=== PATIENT | male | born 1980 | race Hispanic/Latino ===

== ENCOUNTER 2017-10-26 20:18 | Emergency (ER) | payer MEDICARE, OTHER ==
[2017-10-26 20:27] VITALS: BMI 29.7
[2017-10-26 21:08] LABS: ALB/GLOB RATIO 1.3 (1.1-1.8); ALBUMIN 4.5 g/dL (3.0-4.8); ALT/SGPT 54 U/L (7-56); AST/SGOT 27 U/L (17-59); BLOOD UREA NITROGEN 13 mg/dL (7-21); CALCIUM 9.6 mg/dL (8.4-10.5); GFR AFRICAN-AMERICAN > 60; GFR NON-AFRICAN AMERICAN > 60
--- NOTE | 2017-10-26 21:09 | ED PDOC ---
Arrival/HPI - General Historian: Patient <Susanne Barnett A - Last Filed: 10/27/17 01:03> <Onofre Augustin - Last Filed: 10/28/17 15:30> - General Chief Complaint: Chest Pain Time Seen by Provider: 10/26/17 20:36 - History of Present Illness Narrative History of Present Illness (Text): 10/26/17 20:56 37yo morbidly obese male with pmhx of hypertension present with complaint of elevated BP and chest tightness. States he stopped taking his antihypertensive years ago, after losing weight. States he wasn't feeling well 4months ago and checked his BP and it was elevated. He states that he started taking old Norvasc he found in his house. States he took it for 4weeks and feel that it didn't help his BP. States he took the last tab few days ago. States he started having chest tightness this evening. He denies headache, nausea, vomiting, slurred speech, focal weakness, visual changes, fever, chills, neck pain, abdominal pain, any other complaint. (Susanne Barnett A) Past Medical History - Provider Review Nursing Documentation Reviewed: Yes - Infectious Disease Hx of Infectious Diseases: None - Tetanus Immunization Tetanus Immunization: Unknown - Past Medical History Past Medical History: No Previous - Cardiac Hx Hypertension: Yes - Pulmonary Hx Pneumonia: Yes - Neurological Hx Neurological Disorder: No - HEENT Hx HEENT Disorder: No - Renal Hx Renal Disorder: No Hx Kidney Stones: Yes - Endocrine/Metabolic Hx Endocrine Disorders: No - Hematological/Oncological Hx Blood Disorders: No - Integumentary Hx Dermatological Disorder: No (MULTIPLE SCARRING FROM SURGERY -BACK OF HEAD BILATERAL LEGS) - Musculoskeletal/Rheumatological Hx Falls: No Hx Fractures: Yes Other/Comment: multiple ortho sx - Gastrointestinal Hx Gastrointestinal Disorders: No - Genitourinary/Gynecological Hx Genitourinary Disorders: Yes Hx Hematuria: Yes Hx Urinary Tract Infection: Yes (10-31-13) - Psychiatric Hx Psychophysiologic Disorder: No Hx Substance Use: No - Surgical History Hx Joint Replacement: Yes Hx Musculoskeletal Surgery: Yes Hx Orthopedic Surgery: Yes Other/Comment: L femur sx. Compressed spine. H/O paralysis - Anesthesia Hx Anesthesia: Yes Hx Anesthesia Reactions: No Hx Malignant Hyperthermia: No - Suicidal Assessment Feels Threatened In Home Enviroment: No <Susanne Barnett A - Last Filed: 10/27/17 01:03> Family/Social History - Physician Review Nursing Documentation Reviewed: Yes Family/Social History: Unknown Family HX Smoking Status: Heavy Smoker > 10 Cigarettes Daily Hx Alcohol Use: No Hx Substance Use: No Hx Substance Use Treatment: No <Susanne Barnett A - Last Filed: 10/27/17 01:03> Allergies/Home Meds <Susanne Barnett A - Last Filed: 10/27/17 01:03> <CharliOnofre - Last Filed: 10/28/17 15:30> Allergies/Adverse Reactions: Allergies cat Allergy (Uncoded 12/19/14 16:56) SHORTNESS OF BREATH Home Medications: Home Meds Medication Instructions Recorded Confirmed Aspirin [Adult Low Dose Aspirin EC] 1 tab PO DAILY 10/26/17 10/26/17 Review of Systems - Physician Review All systems were reviewed & negative as marked: Yes - Review of Systems Constitutional: Normal Eyes: Normal ENT: Normal Respiratory: Normal Cardiovascular: Chest Pain. absent: Palpitations, Edema, Calf Pain, SOUZA, Orthopnea, Syncope Gastrointestinal: Normal Genitourinary Male: Normal Musculoskeletal: Normal Skin: Normal Neurological: Normal Endocrine: Normal Hemo/Lymphatic: Normal Psychiatric: Normal <Susanne Barnett A - Last Filed: 10/27/17 01:03> Physical Exam Vital Signs Reviewed: Yes Temperature: Afebrile Blood Pressure: Hypertensive Pulse: Regular Respiratory Rate: Normal Appearance: Positive for: Well-Appearing, Non-Toxic, Comfortable Pain Distress: None Mental Status: Positive for: Alert and Oriented X 3 - Systems Exam Head: Present: Atraumatic, Normocephalic Pupils: Present: PERRL Extroacular Muscles: Present: EOMI Conjunctiva: Present: Normal Mouth: Present: Moist Mucous Membranes Neck: Present: Normal Range of Motion Respiratory/Chest: Present: Clear to Auscultation, Good Air Exchange. No: Respiratory Distress, Accessory Muscle Use Cardiovascular: Present: Regular Rate and Rhythm, Normal S1, S2. No: Murmurs Abdomen: No: Tenderness, Distention, Peritoneal Signs Back: Present: Normal Inspection Upper Extremity: Present: Normal Inspection. No: Cyanosis, Edema Lower Extremity: Present: Normal Inspection. No: Edema Neurological: Present: GCS=15, CN II-XII Intact, Speech Normal, Motor Func Grossly Intact, Normal Sensory Function, Normal Cerebellar Funct, Norm Deep Tendon Reflexes, Gait Normal, Memory Normal, Normal 2Pt Descrimination, Other ( No focal neurological deficit) Skin: Present: Warm, Dry, Normal Color. No: Rashes Psychiatric: Present: Alert, Oriented x 3, Normal Insight, Normal Concentration <Susanne Barnett A - Last Filed: 10/27/17 01:03> Vital Signs Temp Pulse Pulse Resp BP Pulse Ox 10/27/17 00:57 98.2 F 85 17 167/83 H 99 10/27/17 00:13 85 16 153/85 H 99 10/26/17 22:41 84 164/84 H 10/26/17 22:22 84 187/110 H 10/26/17 21:44 90 16 185/99 H 99 10/26/17 21:05 95 H 168/110 H 10/26/17 20:40 92 H 10/26/17 20:37 98.8 F 90 18 162/119 H 97 Medical Decision Making <Susanne Barnett A - Last Filed: 10/27/17 01:03> <Onofre Augustin - Last Filed: 10/28/17 15:30> ED Course and Treatment: 10/27/17 00:58 PT presented for stated history. He was hypertensive on presentation but not in any distress. He remained Neurologically intact in Emergency department. Lab was ordered and reviewed. EKG NSR @92bpm Pt's BP was controlled in Emergency department with medication. ASA was given for chest pain Ist and 2nd CE was negative. PT was given a rx of Lisnopril/HCTZ 20/12.5mg. He was strongly advised to f/u with the clinic. Educated on the importance of been complaint with his antihtn. (Susanne Barnett A) - Lab Interpretations Lab Results: 10/26/17 20:31 10/26/17 20:31 Lab Results 10/27/17 00:01: Lactate Dehydrogenase 359, Total Creatine Kinase 82, Troponin I < 0.01 10/26/17 20:31: Sodium 145, Potassium 4.3, Chloride 104, Carbon Dioxide 29, Anion Gap 17, BUN 13, Creatinine 0.8, Est GFR ( Amer) > 60, Est GFR (Non- Af Amer) > 60, Random Glucose 128 H, Calcium 9.6, Magnesium 1.9, Total Bilirubin 0.4, AST 27, ALT 54, Alkaline Phosphatase 59, Lactate Dehydrogenase 432, Total Creatine Kinase 87, Troponin I < 0.01, Total Protein 7.9, Albumin 4.5 , Globulin 3.5, Albumin/Globulin Ratio 1.3 10/26/17 20:31: PT 11.0, INR 0.97, APTT 30.6 10/26/17 20:31: WBC 11.8 H D, RBC 5.35, Hgb 16.0, Hct 46.2, MCV 86.4, MCH 29.9, MCHC 34.6, RDW 12.7, Plt Count 270, MPV 10.7, Gran % 59.3, Lymph % (Auto) 30.8, [place] % (Auto) 6.5 H, Eos % (Auto) 3.1, Baso % (Auto) 0.3, Gran # 6.97 H, Lymph # (Auto) 6.6 H, [place] # (Auto) 0.8 H, Eos # (Auto) 0.3, Baso # (Auto) 0.03 - RAD Interpretation Radiology Orders: 10/26/17 20:39 CHEST PORTABLE [RAD] Stat - Medication Orders Current Medication Orders: Discontinued Medications Aspirin (Aspirin) 325 mg PO STAT STA Stop: 10/26/17 20:39 Last Admin: 10/26/17 21:05 Dose: 325 mg Hydralazine HCl (Apresoline) 10 mg IVP STAT DEDE Last Admin: 10/26/17 21:05 Dose: 10 mg IVP Administration Document 10/26/17 21:05 IT (Rec: 10/26/17 21:06 CHIDI [id number]) Charges for Administration # of IVP Administrations 1 MAR Pulse and Blood Pressure Document 10/26/17 21:05 IT (Rec: 10/26/17 21:06 CHIDI [id number]) Pulse Pulse Rate (60-90) 95 Blood Pressure Blood Pressure (100/60-150/90) 168/110 Hydralazine HCl (Apresoline) 10 mg IVP STAT STA Stop: 10/26/17 22:04 Last Admin: 10/26/17 22:22 Dose: 10 mg IVP Administration Document 10/26/17 22:22 GMD (Rec: 10/26/17 22:23 [facility] [id number]) Charges for Administration # of IVP Administrations 1 MAR Pulse and Blood Pressure Document 10/26/17 22:22 [facility] (Rec: 10/26/17 22:23 [facility] [id number]) Pulse Pulse Rate (60-90) 84 Blood Pressure Blood Pressure (100/60-150/90) 187/110 - PA / FITNESS SALES CONSULTANT / Resident Statement MD/DO has reviewed & agrees with the documentation as recorded. <Onofre Augustin - Last Filed: 10/28/17 15:30> Disposition/Present on Arrival - Present on Arrival Any Indicators Present on Arrival: No History of DVT/PE: No History of Uncontrolled Diabetes: No Urinary Catheter: No History of Decub. Ulcer: No History Surgical Site Infection Following: None - Disposition Have Diagnosis and Disposition been Completed?: Yes Disposition Time: 00:50 Patient Plan: Discharge <Susanne Barnett - Last Filed: 10/27/17 01:03> <Onofre Augustin - Last Filed: 10/28/17 15:30> - Disposition Diagnosis: Hypertension, Chest pain Disposition: HOME/ ROUTINE Condition: IMPROVED Discharge Instructions (ExitCare): High Blood Pressure in Adults, Chest Pain, Chest Pain (ED) Additional Instructions: Follow up with the clinic Return to Emergency department for any new or worsening symptoms Prescriptions: Lisinopril/Hydrochlorothiazide [Lisinopril-Hctz 20-12.5 mg Tab] 1 each PO DAILY #15 tablet Referrals: PCP,NO [Primary Care Provider] - Follow up with primary Amy Freedman MD [Medical Doctor] - Follow up with primary Forms: [employer] ([place])
[2017-10-26 21:16] LABS: MEAN CELL VOLUME 86.4 fl (80.0-105.0); MEAN CORPUSCULAR HEMOGLOBIN 29.9 pg (25.0-35.0); RBC 5.35 10^6/uL (3.5-6.1); WHITE BLOOD COUNT 11.8 10^3/ul (4.5-11.0)
[2017-10-26 21:18] LABS: TROPONIN I < 0.01 ng/mL
[2017-10-26 21:20] LABS: INR 0.97; PARTIAL THROMBOPLASTIN TIME 30.6 Seconds (25.1-36.5)
[2017-10-26 21:23] LABS: MEAN CORPUSCULAR HGB CONC 34.6 g/dl (31.0-37.0); RED CELL DISTRIBUTION WIDTH 12.7 % (11.5-14.5)
[2017-10-26 21:24] LABS: BASO # 0.03 K/mm3 (0.0-2.0); BASO % 0.3 % (0.0-3.0); EOS # 0.3 (0.0-0.7); EOS % 3.1 % (1.5-5.0); GRAN # 6.97 (1.4-6.5); GRAN % 59.3 % (50.0-68.0); LYMPH # 6.6 (1.2-3.4); LYMPH % 30.8 % (22.0-35.0); MEAN PLATELET VOLUME 10.7 fl (7.0-11.0); MONO # 0.8 (0.1-0.6); MONO % 6.5 % (1.0-6.0)
[2017-10-26 21:45] VITALS: O2SAT 99
[2017-10-27 00:14] VITALS: PULSE 85
[2017-10-27 00:38] LABS: TROPONIN I < 0.01 ng/mL
[2017-10-27 00:57] VITALS: BP 167/83; RESP 17; TEMP 98.2
--- NOTE | 2017-10-27 08:40 | RAD ---
Date of service: 10/26/2017 HISTORY: chest pain COMPARISON: Comparison chest 01/11/2015 FINDINGS: LUNGS: No active pulmonary disease. PLEURA: No significant pleural effusion identified, no pneumothorax apparent. CARDIOVASCULAR: Normal. OSSEOUS STRUCTURES: No significant abnormalities. VISUALIZED UPPER ABDOMEN: Normal. OTHER FINDINGS: None. IMPRESSION: No active disease.
--- NOTE | 2017-10-27 10:31 | CARD ---
APPROVED REPORT Date of service: 10/26/2017 EKG Measurement Heart [id number] <Conclusion> Normal sinus rhythm Normal ECG
== END 2017-10-27 00:57 | disposition home or self-care (01) ==
LOC: ED 20:18
DX: R07.89 Other chest pain (principal); I10 Essential (primary) hypertension; F17.210 Nicotine dependence, cigarettes, uncomplicated; E66.01 Morbid (severe) obesity due to excess calories
CPT/HCPCS: 71045; 80053; 82550; 83615; 83735; 84484; 85025; 85610; 85730; 93005; 96374; 96376; 99284; J0360

== ENCOUNTER 2017-10-28 17:36 | Observation (INO) | payer MEDICARE, OTHER ==
[2017-10-28 17:36] VITALS: BMI 29.7
--- NOTE | 2017-10-28 17:59 | ED PDOC ---
"Arrival/HPI - General Chief Complaint: High Blood Pressure Time Seen by Provider: 10/28/17 17:40 Historian: Patient - History of Present Illness Narrative History of Present Illness (Text): 10/28/17 17:52 37 y/o male, pmh including chronic htn, chronic smoker, family history of [place] at early 30s, nkda, c/o chest pain on and off for the past few days. Pt. stated that his chest feels tight with squeezing sensation, associated with chest pain , non-radiating, no palpitation or night sweat, no history of leg swelling, no numbness or tingling, no change in vision, no headache, no other medical or psychological complaints. Past Medical History - Provider Review Nursing Documentation Reviewed: Yes - Infectious Disease Hx of Infectious Diseases: None - Tetanus Immunization Tetanus Immunization: Unknown - Past Medical History Past Medical History: No Previous - Cardiac Hx Hypertension: Yes - Pulmonary Hx Pneumonia: Yes - Neurological Hx Neurological Disorder: No - HEENT Hx HEENT Disorder: No - Renal Hx Renal Disorder: No Hx Kidney Stones: Yes - Endocrine/Metabolic Hx Endocrine Disorders: No - Hematological/Oncological Hx Blood Disorders: No - Integumentary Hx Dermatological Disorder: No (MULTIPLE SCARRING FROM SURGERY -BACK OF HEAD BILATERAL LEGS) - Musculoskeletal/Rheumatological Hx Falls: No Hx Fractures: Yes Other/Comment: multiple ortho sx - Gastrointestinal Hx Gastrointestinal Disorders: No - Genitourinary/Gynecological Hx Genitourinary Disorders: Yes Hx Hematuria: Yes Hx Urinary Tract Infection: Yes (10-31-13) - Psychiatric Hx Psychophysiologic Disorder: No Hx Substance Use: No - Surgical History Hx Joint Replacement: Yes Hx Musculoskeletal Surgery: Yes Hx Orthopedic Surgery: Yes Other/Comment: L femur sx. Compressed spine. H/O paralysis - Anesthesia Hx Anesthesia: Yes Hx Anesthesia Reactions: No Hx Malignant Hyperthermia: No - Suicidal Assessment Feels Threatened In Home Enviroment: No Family/Social History - Physician Review Nursing Documentation Reviewed: Yes Family/Social History: Unknown Family HX Smoking Status: Heavy Smoker > 10 Cigarettes Daily Hx Alcohol Use: No Hx Substance Use: No Hx Substance Use Treatment: No Allergies/Home Meds Allergies/Adverse Reactions: Allergies cat Allergy (Uncoded 12/19/14 16:56) SHORTNESS OF BREATH Home Medications: Home Meds Medication Instructions Recorded Confirmed Aspirin [Adult Low Dose Aspirin EC] 1 tab PO DAILY 10/26/17 10/28/17 Review of Systems - Review of Systems Constitutional: absent: Fatigue, Fevers Eyes: absent: Vision Changes ENT: absent: Hearing Changes Respiratory: absent: SOB, Cough Cardiovascular: Chest Pain Gastrointestinal: absent: Abdominal Pain, Nausea, Vomiting Skin: absent: Rash, Pruritis Neurological: absent: Headache, Dizziness Psychiatric: absent: Anxiety, Depression, Suicidal Ideation Physical Exam Vital Signs Reviewed: Yes Vital Signs Temp Pulse Resp BP Pulse Ox 10/28/17 23:18 71 22 137/80 97 10/28/17 22:59 75 16 149/98 H 95 10/28/17 21:58 85 21 161/98 H 97 10/28/17 21:22 205/127 H 10/28/17 19:54 88 13 152/121 H 98 10/28/17 18:41 94 H 19 148/119 H 99 10/28/17 18:30 148/119 H 10/28/17 17:45 98 F 96 H 18 180/112 H 99 Temperature: Afebrile Blood Pressure: Hypertensive Pulse: Regular Respiratory Rate: Normal Appearance: Positive for: Well-Appearing, Non-Toxic, Comfortable Pain Distress: Moderate Mental Status: Positive for: Alert and Oriented X 3 - Systems Exam Head: Present: Atraumatic, Normocephalic Pupils: Present: PERRL Extroacular Muscles: Present: EOMI Conjunctiva: Present: Normal Mouth: Present: Moist Mucous Membranes Neck: Present: Normal Range of Motion Respiratory/Chest: Present: Clear to Auscultation, Good Air Exchange. No: Respiratory Distress, Accessory Muscle Use Cardiovascular: Present: Regular Rate and Rhythm, Normal S1, S2, Other (no pedal edema). No: Murmurs Abdomen: No: Tenderness, Distention, Peritoneal Signs, Rebound, Guarding Back: Present: Normal Inspection Upper Extremity: Present: Normal Inspection. No: Cyanosis, Edema Lower Extremity: Present: Normal Inspection. No: Edema Neurological: Present: GCS=15, CN II-XII Intact, Speech Normal, Motor Func Grossly Intact, Gait Normal, Memory Normal Skin: Present: Warm, Dry, Normal Color. No: Rashes Psychiatric: Present: Alert, Oriented x 3, Normal Insight, Normal Concentration Medical Decision Making ED Course and Treatment: 10/28/17 18:09 Differential: Dissection vs. ACS vs. Hypertensive emergency/urgency vs. CHF vs. drug abuse -Labs/cardiac enzyme/bnp/drug screen -ekg -cxr/CT dissection study -IVF/morphine/nitro SL/Asprin 325mg po/Oxygen 2L -Observe and reassess 10/28/17 21:15 -Pt. has elevated BP again, not control, labetolol 20mg IV ordered, will admit for uncontrollable htn 10/28/17 21:56 -EKG: NSR @ 85 BPM, RBBB, no ST elevation or depression, no T wave inversion, compared with previous ekg. -Chest X-Ray show no active disease -CT dissection show No dissection -Labs show no acute findings except wbc 11.5 (afebrile, likely stress induced) -BNP within normal limit -Cardiac enzyme within normal limit -UA show no UTI -UDS show -All labs/radiology result discussed with the patient and the family, agreed to admit for observation. -Pt. has chest pain relief with the medication in the ER, will admit for uncontrollable BP and Chest pain r/o acs. -Paging Dr. Franklin for admission. 10/28/17 22:41 -I spoke to Dr. Franklin about this case, discussed about the labs/radiology result, agreed to admit to her service to telemetry, request Dr. Noland and Dr. Lewis on routine consult. 10/28/17 23:20 -Drug screen show +methadone and +opiate - Lab Interpretations Lab Results: 10/28/17 18:15 10/28/17 18:15 Lab Results 10/28/17 20:40: Urine Opiates Screen Positive H, Urine Methadone Screen Positive H, Ur Barbiturates Screen Negative, Ur Phencyclidine Scrn Negative, Ur Amphetamines Screen Negative, U Benzodiazepines Scrn Negative, U Oth Cocaine Metabols Negative, U Cannabinoids Screen Negative 10/28/17 19:58: Urine Color Light yellow, Urine Appearance Clear, Urine pH 6.0, Ur Specific Sheldon >= 1.030, Urine Protein 30 H, Urine Glucose (UA) Negative, Urine Ketones Negative, Urine Blood Negative, Urine Nitrate Negative, Urine Bilirubin Negative, Urine Urobilinogen 0.2, Ur Leukocyte Esterase Negative, Urine RBC Negative, Urine WBC Negative, Ur Epithelial Cells None, Urine Bacteria None 10/28/17 18:15: WBC 11.5 H, RBC 5.39, Hgb 16.5, Hct 45.9, MCV 85.2, MCH 30.6, MCHC 35.9, RDW 12.7, Plt Count 279, MPV 10.5, Gran % 60.6, Lymph % (Auto) 30.1, Nash % (Auto) 6.5 H, Eos % (Auto) 2.5, Baso % (Auto) 0.3, Gran # 6.99 H, Lymph # (Auto) 3.5 H, Nash # (Auto) 0.8 H, Eos # (Auto) 0.3, Baso # (Auto) 0.03 10/28/17 18:15: Sodium 141, Potassium 4.0, Chloride 101, Carbon Dioxide 28, Anion Gap 16, BUN 16, Creatinine 0.9, Est GFR ( Amer) > 60, Est GFR (Non- Af Amer) > 60, Random Glucose 98, Calcium 9.7, Magnesium 2.0, Total Bilirubin 0.5, AST 29, ALT 53, Alkaline Phosphatase 57, Lactate Dehydrogenase 436, Total Creatine Kinase 82, Troponin I < 0.01, NT-Pro-B Natriuret Pep 25.0, Total Protein 8.2, Albumin 4.7, Globulin 3.5, Albumin/Globulin Ratio 1.4 I have reviewed the lab results: Yes - RAD Interpretation Radiology Orders: 10/28/17 18:00 ANGIOGRAPHY DISECTION PROTOCOL [CT] Stat CHEST PORTABLE [RAD] Stat Chest xray: --- CT Dissection study: FINDINGS: Limitations: No java software engineer view. Motion artifact - mild. Pulmonary arteries: No definite pulmonary embolism. Aorta: No dissection. No aneurysm. Lungs: No consolidation. Pleural space: No significant effusion. No pneumothorax. Heart: No cardiomegaly. No significant pericardial effusion. Mediastinum: Probable residual thymus. Bones/joints: Schmorl's nodes at few levels. Mild wedging of lower thoracic vertebral bodies, chronic. No acute fracture. Soft tissues: Unremarkable. Lymph nodes: No pathologically enlarged lymph nodes. IMPRESSION: 1. No aortic dissection. GISELA HANNON | Preliminary Radiology Report Page 2 of 3 2. Incidental/non-acute findings are described above. EXAM: CT Angiography Abdomen and Pelvis Without And With Intravenous Contrast CLINICAL HISTORY: 37 years old, male; Pain; Abdominal pain; Chest pain; Prior surgery; Surgery date: 6+ months; Patient HX: Chest pain/htn TECHNIQUE: Axial computed tomographic angiography images of the abdomen and pelvis without and with intravenous contrast. All CT scans at this facility use at least one of these dose optimization techniques: automated exposure control; mA and/or kV adjustment per patient size (includes targeted exams where dose is matched to clinical indication); or iterative reconstruction. Coronal and sagittal reformatted images were created and reviewed. COMPARISON: No relevant prior studies available. FINDINGS: VASCULATURE: Aorta: No dissection. No aneurysm. Minimal atherosclerotic disease. Celiac trunk and mesenteric arteries: No occlusion or significant stenosis. Renal arteries: No occlusion or significant stenosis. Iliac arteries: Minimal atherosclerotic disease. No occlusion or significant stenosis. ABDOMEN: Liver: Fatty infiltration. Gallbladder and bile ducts: No calcified stones. No ductal dilation. Pancreas: No ductal dilation. No mass. Spleen: Mildly enlarged. Adrenals: No mass. Kidneys and ureters: No obstructing stones. No hydronephrosis. No solid mass. Stomach and bowel: No obstruction. No mucosal thickening. PELVIS: Appendix: Normal caliber. No inflammation. Bladder: No stones. No mass. Reproductive: Unremarkable as visualized. ABDOMEN and PELVIS: Intraperitoneal space: No significant fluid collection. No free air. GISELA HANNON | Preliminary Radiology Report PICKERS MATERIAL HANDLERS (QA) DISCREPANCY? If there is a discrepancy between the preliminary and final interpretation, please notify [facility] via [email or web address]. If you do not have access to our QA portal, call our QA team at [phone] CONFIDENTIALITY STATEMENT This report is intended only for the use of the referring physician, and only in accordance with law, If you received this in error, call [phone] Page 3 of 3 Bones/joints: Schmorl's nodes at few levels. Developmental dysplasia of right hip. No acute fracture. Soft tissues: Tiny umbilical hernia containing fat. Lymph nodes: No pathologically enlarged lymph nodes. IMPRESSION: 1. No aortic dissection. 2. Incidental/non-acute findings are described above. Thank you for allowing us to participate in the care of your patient. Dictated and Authenticated by: Bo Guerra MD - EKG Interpretation EKG Interpretation (Text): 10/28/17 18:11 -EKG: NSR @ 85 BPM, RBBB, no ST elevation or depression, no T wave inversion, compared with previous ekg. Interpreted by ED Physician: Yes Type: 12 lead EKG Comparison: Com.w/previous EKG - Medication Orders Current Medication Orders: Sodium Chloride (Sodium Chloride 0.9%) 1,000 mls @ 100 mls/hr IV .Q10H DEDE Last Admin: 10/28/17 18:32 Dose: 100 mls/hr eMAR Start Stop Document 10/28/17 18:32 GMI (Rec: 10/28/17 18:32 GMI [id number]) Intravenous Solution Start Date 10/28/17 Start Time 18:32 Discontinued Medications Aspirin (Aspirin) 325 mg PO STAT STA Stop: 10/28/17 18:05 Last Admin: 10/28/17 18:13 Dose: 325 mg Enalaprilat (Vasotec Iv) 1.25 mg IVP STAT STA Stop: 10/28/17 18:02 Last Admin: 10/28/17 18:30 Dose: 1.25 mg MAR Blood Pressure Document 10/28/17 18:30 GMI (Rec: 10/28/17 18:30 GMI [id number]) Blood Pressure Blood Pressure (100/60-150/90) 148/119 IVP Administration Document 10/28/17 18:30 GMI (Rec: 10/28/17 18:30 GMI [id number]) Charges for Administration # of IVP Administrations 1 Labetalol HCl (Trandate) 20 mg IV STAT STA Stop: 10/28/17 21:15 Last Admin: 10/28/17 21:22 Dose: 20 mg eMAR Start Stop Document 10/28/17 21:22 CNR (Rec: 10/28/17 21:23 CNR [id number]) Intravenous Solution Start Date 10/28/17 Start Time 21:23 MAY Pulse and Blood Pressure Document 10/28/17 21:22 CNR (Rec: 10/28/17 21:23 CNR [id number]) Blood Pressure Blood Pressure (100/60-150/90) 205/127 Morphine Sulfate (Morphine) 5 mg IVP STAT STA Stop: 10/28/17 18:06 Last Admin: 10/28/17 18:30 Dose: 5 mg MAR Pain Assessment Document 10/28/17 18:30 GMI (Rec: 10/28/17 18:31 GMI [id number]) Pain Reassessment Is this a pain reassessment? Yes Sleep Is patient sleeping during reassessment? No Presence of Pain Presence of Pain Yes Pain Scale Used Pain Scale Used Numeric Location Pain Location Body Site Chest Description Description Constant Intensity of Pain at present 7 Pain Behavior Facial Grimacing Alleviating Factors/Management Position Change Techniques Relaxation Techniques Alleviating Factors Medication IVP Administration Document 10/28/17 18:30 GMI (Rec: 10/28/17 18:31 GMI [id number]) Charges for Administration # of IVP Administrations 1 Nitroglycerin (Nitrostat Sl Tab) 0.3 mg SL STAT STA Stop: 10/28/17 18:05 Last Admin: 10/28/17 18:12 Dose: 0.3 mg - PA / SENIOR GROUP MANAGER / Resident Statement MD/DO has reviewed & agrees with the documentation as recorded. Disposition/Present on Arrival - Present on Arrival Any Indicators Present on Arrival: No History of DVT/PE: No History of Uncontrolled Diabetes: No Urinary Catheter: No History of Decub. Ulcer: No History Surgical Site Infection Following: None - Disposition Have Diagnosis and Disposition been Completed?: Yes Diagnosis: Chest pain, HTN (hypertension), Drug abuse Disposition: HOSPITALIZED Disposition Time: 21:57 Patient Plan: Admission, Observation, Telemetry Patient Problems: Current Active Problems Problem Status Onset Chest pain Acute HTN (hypertension) Acute Condition: STABLE"
[2017-10-28] MEDS ORDERED: EnalaprilAT 1.25 mg/ml Inj IVP STA (18:01)
[2017-10-28] MEDS: Sodium Chloride 0.9% 1,000 ML IV SCH (18:32)
[2017-10-28 18:59] LABS: BASO # 0.03 K/mm3 (0.0-2.0); BASO % 0.3 % (0.0-3.0); EOS # 0.3 (0.0-0.7); EOS % 2.5 % (1.5-5.0); GRAN # 6.99 (1.4-6.5); GRAN % 60.6 % (50.0-68.0); HEMOGLOBIN 16.5 g/dL (14.0-18.0); LYMPH # 3.5 (1.2-3.4); LYMPH % 30.1 % (22.0-35.0); MEAN CELL VOLUME 85.2 fl (80.0-105.0); MEAN CORPUSCULAR HEMOGLOBIN 30.6 pg (25.0-35.0); MEAN CORPUSCULAR HGB CONC 35.9 g/dl (31.0-37.0); MEAN PLATELET VOLUME 10.5 fl (7.0-11.0); MONO # 0.8 (0.1-0.6); MONO % 6.5 % (1.0-6.0); RBC 5.39 10^6/uL (3.5-6.1); RED CELL DISTRIBUTION WIDTH 12.7 % (11.5-14.5); WHITE BLOOD COUNT 11.5 10^3/ul (4.5-11.0)
[2017-10-28 19:13] LABS: ALB/GLOB RATIO 1.4 (1.1-1.8); ALBUMIN 4.7 g/dL (3.0-4.8); ALT/SGPT 53 U/L (7-56); AST/SGOT 29 U/L (17-59); BLOOD UREA NITROGEN 16 mg/dL (7-21); CALCIUM 9.7 mg/dL (8.4-10.5); GFR AFRICAN-AMERICAN > 60; GFR NON-AFRICAN AMERICAN > 60
[2017-10-28 19:20] LABS: TROPONIN I < 0.01 ng/mL
[2017-10-28] MEDS ORDERED: Iohexol 350 MG/100 ML VIAL ONE (19:31)
[2017-10-28 20:06] LABS: URINE APPEARANCE CLEAR (CLEAR); URINE BILIRUBIN NEGATIVE (NEGATIVE); URINE BLOOD NEGATIVE (NEGATIVE); URINE COLOR LIGHT YELLOW (YELLOW); URINE GLUCOSE (UA) NEGATIVE (NEGATIVE); URINE LEUKOCYTE ESTERASE NEGATIVE Leu/uL (NEGATIVE); URINE PROTEIN 30 mg/dL (<30 mg/dL); URINE UROBILINOGEN 0.2 E.U./dL (<1 E.U./dL)
[2017-10-28 20:13] LABS: URINE RBC NEGATIVE /hpf (0-2); URINE WBC NEGATIVE /hpf (0-6)
[2017-10-28] MEDS ORDERED: Labetalol 5 mg/ml Inj 20ML IV STA (21:14)
[2017-10-28 23:13] LABS: BARBITURATES, UR NEGATIVE (NEGATIVE); BENZODIAZEPINES, UR NEGATIVE (NEGATIVE); OPIATES, UR POSITIVE (NEGATIVE); PHENCYCLIDINE, UR NEGATIVE (NEGATIVE)
[2017-10-29] MEDS: Sodium Chloride 0.9% 1,000 ML IV SCH (04:00)
--- NOTE | 2017-10-29 08:39 | RAD ---
Date of service: 10/28/2017 HISTORY: Chest pain COMPARISON: 10/26/2017. FINDINGS: LUNGS: The lungs are well inflated and clear. PLEURA: No significant pleural effusion identified, no pneumothorax apparent. CARDIOVASCULAR: Normal. OSSEOUS STRUCTURES: No significant abnormalities. VISUALIZED UPPER ABDOMEN: Normal. OTHER FINDINGS: None. IMPRESSION: No active pulmonary disease.
--- NOTE | 2017-10-29 09:55 | CARD ---
APPROVED REPORT Date of service: 10/28/2017 EKG Measurement Heart [id number] <Conclusion> Normal sinus rhythm Incomplete right bundle branch block Borderline ECG
--- NOTE | 2017-10-29 13:25 | CT ---
PROCEDURE: CT Angiography Chest, Abdomen and Pelvis with and without intravenous contrast HISTORY: chest pain/htn COMPARISON: None. TECHNIQUE: Contiguous axial images of the chest, abdomen and pelvis were obtained in the phase of aortic enhancement. A noncontrast enhanced CT of the chest was also obtained to evaluate for possible intramural thrombus. Coronal and sagittal reformats were generated. IV dose administered: 100 cc of Omnipaque 350 Radiation dose: Total exam DLP = 2692 mGy-cm. This CT exam was performed using one or more of the following dose reduction techniques: Automated exposure control, adjustment of the mA and/or kV according to patient size, and/or use of iterative reconstruction technique. FINDINGS: CT ANGIOGRAPHY OF THE CHEST WITH & WITHOUT CONTRAST: AORTA (CHEST AND ABDOMEN): The thoracic and abdominal aorta are unremarkable, without aneurysm, dissection or rupture. No intramural thrombus identified in the thoracic aorta on the non-contrast ct of the chest. The celiac axis, superior mesenteric artery, inferior mesenteric artery and the renal arteries are widely patent. The pelvic arteries are unremarkable. LUNGS: Clear. No nodule, mass or consolidation. MEDIASTINUM: Unremarkable. Normal caliber aorta and pulmonary arterial trunk. No aortic dissection. Normal size heart. LYMPH NODES: Unremarkable. PLEURA: Unremarkable. No pneumothorax. No pleural fluid. BONES: Unremarkable. OTHER FINDINGS: None. CT ANGIOGRAPHY OF THE ABDOMEN AND PELVIS WITH CONTRAST: LIVER: Unremarkable. No gross lesion or ductal dilatation. GALLBLADDER AND BILE DUCTS: Unremarkable. PANCREAS: Unremarkable. No gross lesion or ductal dilatation. SPLEEN: Unremarkable. ADRENALS: Unremarkable. No mass. KIDNEYS AND URETERS: Unremarkable. No hydronephrosis. No solid mass. VASCULATURE: Unremarkable. No aortic aneurysm. STOMACH AND BOWEL: Unremarkable. No obstruction. No gross mural thickening. APPENDIX: Normal appendix. PERITONEUM: Unremarkable. No free fluid. No free air. LYMPH NODES: Unremarkable. No enlarged lymph nodes. BLADDER: Unremarkable. REPRODUCTIVE: Unremarkable. BONES: No acute fracture. OTHER FINDINGS: The report concurs with the preliminary [facility] report IMPRESSION: No evidence of aortic dissection. No acute intrathoracic or intra-abdominal finding
[2017-10-29 16:41] LABS: TROPONIN I < 0.01 ng/mL
--- NOTE | 2017-10-29 20:05 | CARD ---
APPROVED REPORT Date of service: 10/29/2017 EKG Measurement Heart [id number] <Conclusion> Normal sinus rhythm Incomplete right bundle branch block Borderline ECG
--- NOTE | 2017-10-29 20:10 | CON ---
Copied To: Lali Weber MD Attending MD: Lali Weber MD DATE: 10/29/2017 CARDIOLOGY CONSULTATION REASON FOR THE CONSULTATION: Uncontrolled hypertension, chest pain, and headache. BRIEF CLINICAL HISTORY: This is a 37-year-old male with past medical history significant for chronic hypertension, smoker, family history significant for coronary artery disease, came in with uncontrolled hypertension for 3 months, not taking any medication, but yesterday's blood pressure was 212/154 in ER. The patient is complaining headache and some chest pain. Denies any prior episode of chest pain, dyspnea on exertion, or chest pain on exertion. PAST MEDICAL HISTORY: Significant for hypertension, not on any medication. PAST SURGICAL HISTORY: Multiple surgeries during the [place] war, was a and fractured femur and pelvis and replacement of right hip joint and left knee surgery and multiple surgeries in the pelvis. SOCIAL HISTORY: Active tobacco abuse. Denies any history of alcohol abuse. FAMILY HISTORY: Significant for coronary artery disease. One of the maternal uncle at the age of 35, one of the paternal uncle at the age of 35 with [facility]. Father has coronary artery disease. CURRENT MEDICATIONS: The patient was taking lisinopril 40 mg and 12.5 of hydrochlorothiazide. REVIEW OF SYSTEMS: As per HPI. PHYSICAL EXAMINATION: GENERAL: Height of the patient 6 feet, weight of the patient 240 pounds, body mass index 40 kg/m2. VITAL SIGNS: Temperature afebrile, heart rate 72, and blood pressure 135/90. HEENT: PERRLA, intact. NECK: Supple. No carotid bruits or thyromegaly. CHEST: Clear to auscultation. HEART: S1 and S2, regular. ABDOMEN: Soft. EXTREMITIES: Clubbing and cyanosis negative. LABORATORY DATA: Blood workup as follows: WBC of 11.5, hemoglobin 16, hematocrit 45.9, and platelet count 279. Chemistry shows sodium 141, potassium 4, chloride 101, carbon dioxide 28, anion gap of 16. BUN 16 and creatinine 0.9. Troponin 0.01. EKG showed normal sinus, incomplete right bundle. IMPRESSION: Uncontrolled hypertension, no evidence of acute myocardial infarction. Admitting blood pressure was, according to the patient, 212/154 at home, but here in the ER, 180/112. Chest pain most likely secondary to uncontrolled hypertension, but given the multiple risk factors for coronary artery disease, suggest echo and a stress test. Echo will do here and stress test, they can do as outpatient after blood pressure is well controlled. We will get lipid profile, TSH, and hemoglobin A1c. Aggressive control of blood pressure. We will follow with you. Thank you, Dr. Franklin, for providing us the opportunity in taking care of the patient, Michael Abbasi. Lali Weber MD
[2017-10-29 23:42] VITALS: RESP 16; O2SAT 98
--- NOTE | 2017-10-30 02:17 | CON ---
Copied To: Lali Lewis MD Attending MD: Lali Lewis MD DATE: 10/29/2017 PULMONARY CONSULTATION REFERRING PHYSICIAN: Kaitlyn Franklin MD REASON FOR CONSULTATION: Admitted with chest pain, may have sleep apnea syndrome, smoker, rule out lung disease. HISTORY OF PRESENT ILLNESS: This is a 37-year-old gentleman, who is disabled which is service related with low back and multiple spine surgery in the past, has an uncontrolled hypertension, smoker, admitted with loud snoring, daytime sleepy and tired. He came in because of chest pain, presently lying in the bed, there is no active chest pain at present time. According to family, he has a loud snoring, daytime sleepy and tired. SOCIAL HISTORY: Disabled. Active smoker. Denies any alcohol use. Denies any drug use. FAMILY HISTORY: Positive extensively with younger age coronary artery disease. ALLERGIES NO MEDICINE ALLERGY, BUT DOES HAVE AN ALLERGY TO CAT DANDRUFF. MEDICATIONS: He is on hydralazine 10 mg every 8 hours, Ecotrin 81 mg daily, metoprolol tartrate 25 mg twice a day, hydrochlorothiazide 12.5 mg daily, Norvasc 10 mg daily, Pepcid 20 mg daily, IV fluid normal saline 100 mL per hour, Zestril 40 mg daily. REVIEW OF SYSTEMS: No headache, no rhinitis. Admitted to have a loud snoring, daytime sleepy and tired, apnea events, epigastric discomfort. No shortness of breath at rest. No dysuria. No leg pain or leg swelling. PHYSICAL EXAMINATION: GENERAL: Lying in the bed, no acute distress. Family at bedside. VITAL SIGNS: Temperature is 98, heart rate 72, respiratory rate is 20, blood pressure 157/98, pulse ox 99% on room air. HEENT: Moist mucous membrane. Crowded airway. Mallampati score 4. NECK: Short thick neck. LUNGS: Has fair airflow, with a few rhonchi. HEART: S1 and S2. ABDOMEN: Soft, nontender. No organomegaly. EXTREMITIES: No edema. NEUROLOGICAL: Awake, alert, follows simple commands. LABORATORY DATA: Shows hemoglobin 16.5, hematocrit 45.9, WBC 11.5, platelet is 279. Sodium 141, potassium 4, chloride 101, bicarbonate 28, BUN 16, creatinine 0.9, glucose 98, calcium is 9.7, magnesium 2, total bili 0.5, AST 29, ALT 53, alk phos is 57. LDH 376. Troponin less than 0.01. ProBNP 25. Albumin is 4.7. Toxicology shows methadone and opiates are present. Has a CTA done on admission, shows no evidence of aortic dissection, no acute intrathoracic or intra-abdominal findings. Lungs are clear. IMPRESSION AND PLAN: Nonspecific chest pain, high-risk for cardiac disease secondary to multiple factors with a strong family history of young age coronary artery disease, active smoker, may have sleep apnea syndrome, uncontrolled hypertension, extensive spine surgeries. Need to rule out chronic lung disease. Case discussed with the family. Spoke to the patient in detail. Once the coronary artery disease is ruled out, he should get attended sleep study because of extensive spine surgeries, also need pulmonary function tests. Patient asked to stop smoking. Also urged to avoid opiates and methadone. He expressed understanding. We will give Nicoderm patch. Also gastroesophageal reflux disease precaution. Discontinue Pepcid. Add Protonix 40 mg daily. Thank you and we will follow with you. Lali Lewis MD
--- NOTE | 2017-10-30 03:41 | HP ---
Copied To: Kaitlyn Franklin MD Attending MD: Kaitlyn Franklin MD CHIEF COMPLAINT: High blood pressure, chest pain. HISTORY OF PRESENT ILLNESS: Mr. Michael Abbasi is a 37-year-old male with past medical history of chronic hypertension, chronic smoker, family history of [place] at early 30s, came with complaining of chest pain on and off for the past few days. The patient states that his chest feels tight with squeezing sensation associated with chest pain, nonradiating. No palpitation or night sweats. No history of leg swelling. No numbness or tingling. No fever. No chills. No vision changes. No headache. No nausea, vomiting, diarrhea. PAST MEDICAL HISTORY: Hypertension; history of pneumonia; kidney stones; multiple scarring from surgery, back of the head, bilateral legs; history of fractures; hematuria; urinary tract infection; history of left femur fracture, compression of spine, history of paralysis. FAMILY HISTORY: Father and mother, noncontributory. HABITS: Heavy smoker. No alcohol. No substance abuse. ALLERGIES: THE PATIENT IS ALLERGIC WITH CAT. HOME MEDICATIONS: Aspirin. REVIEW OF SYSTEMS: The patient was seen and examined, looking comfortable. No fatigue, fever. No vision changes. No hearing loss. No shortness of breath or coughing. There is a history of chest pain. No abdominal pain, nausea or vomiting. No rash or pruritus. No headache or dizziness. No anxiety, depression, suicidal ideation. PHYSICAL EXAMINATION VITAL SIGNS: Temperature 98, pulse 96, respiratory rate 18, blood pressure 180/112. HEENT: Head normocephalic, atraumatic. Eyes, PERRLA. Extraocular muscles are intact. Conjunctivae clear. Nose patent. NECK: Supple. No carotid bruit. No JVD or thyromegaly. CHEST: Bilaterally symmetrical. HEART: S1 and S2 positive. LUNGS: Clear to auscultation. ABDOMEN: Soft. Bowel sounds positive. No organomegaly. EXTREMITIES: No edema. No cyanosis. NEUROLOGICAL: The patient is awake and alert. Moving all 4 extremities. No focal deficits. LABORATORY DATA: White blood cells 11.5, hemoglobin 16.5, hematocrit 45.9, platelets 79. Sodium 141, potassium 4, BUN 16, creatinine 0.9, glucose 98. ASSESSMENT AND PLAN: Mr. Michael Abbasi is a 37-year-old male with leukocytosis, chest pain, hypertension, history of drug abuse. 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 Angiogram and CT done. Chest x-ray done. History of hypertension, uncontrolled. No evidence of acute myocardial infarction. In the ER, the patient's blood pressure was 180/112. Chest pain is most likely secondary to the uncontrolled hypertension. Dr. Weber suggested echocardiography and stress test. Echocardiography, we will do here; and stress test, they can do outpatient after blood pressure is well controlled as per Dr. Weber. We will do TSH, hemoglobin A1c and fasting lipid profile. Troponin x3 of 0.01, is negative. Has proteinuria. Opiate and methadone are positive in the system. Gastrointestinal and deep venous thrombosis prophylaxis. Repeat labs. We will follow up. Kaitlyn Franklin MD
[2017-10-30] MEDS ORDERED: Pantoprazole 40 mg EC Tab PO SCH (06:00)
[2017-10-30 06:12] VITALS: TEMP 98.6
[2017-10-30 06:36] LABS: ALB/GLOB RATIO 1.3 (1.1-1.8); ALBUMIN 4.5 g/dL (3.0-4.8); ALT/SGPT 48 U/L (7-56); AST/SGOT 32 U/L (17-59); BLOOD UREA NITROGEN 18 mg/dL (7-21); CALCIUM 9.3 mg/dL (8.4-10.5); GFR AFRICAN-AMERICAN > 60; GFR NON-AFRICAN AMERICAN > 60; HDL CHOLESTEROL 23 mg/dL (29-60); IRON 131 ug/dL (45-180)
[2017-10-30 06:37] LABS: BASO # 0.02 K/mm3 (0.0-2.0); BASO % 0.2 % (0.0-3.0); EOS # 0.3 (0.0-0.7); EOS % 2.6 % (1.5-5.0); GRAN # 6.6 (1.4-6.5); GRAN % 60.2 % (50.0-68.0); HEMOGLOBIN 15.8 g/dL (14.0-18.0); LYMPH # 3.2 (1.2-3.4); LYMPH % 29.1 % (22.0-35.0); MEAN CELL VOLUME 86.3 fl (80.0-105.0); MEAN CORPUSCULAR HEMOGLOBIN 30.4 pg (25.0-35.0); MEAN CORPUSCULAR HGB CONC 35.2 g/dl (31.0-37.0); MEAN PLATELET VOLUME 10.3 fl (7.0-11.0); MONO # 0.9 (0.1-0.6); MONO % 7.9 % (1.0-6.0); RBC 5.2 10^6/uL (3.5-6.1); RED CELL DISTRIBUTION WIDTH 12.6 % (11.5-14.5); WHITE BLOOD COUNT 10.9 10^3/ul (4.5-11.0)
[2017-10-30 06:46] LABS: LDL CHOLESTEROL 121 mg/dL (0-129)
[2017-10-30 06:51] LABS: % IRON SATURATION 42 % (20-55); TOTAL IRON BINDING CAPACITY 313 ug/dL (261-462)
[2017-10-30 10:34] VITALS: BP 155/89
[2017-10-30] MEDS: Sodium Chloride 0.9% 1,000 ML IV SCH (10:37)
--- NOTE | 2017-10-30 11:53 | PN ---
Copied To: Lali Weber MD Attending MD: Lali Weber MD DATE: 10/30/2017 REASON FOR THE CONSULTATION: Followup uncontrolled hypertension, chest pain and headache. SUBJECTIVE: The patient denies any chest pain. Denies any shortness of breath. Denies any palpitation. Feels a lot better. PHYSICAL EXAMINATION: VITAL SIGNS: Temperature afebrile, heart rate 65, blood pressure 128/88. HEENT: PERRLA. Extraocular muscles intact. NECK: Supple. No carotid bruit. No thyromegaly. CHEST: Clear to auscultation. HEART: S1 and S2 regular. ABDOMEN: Soft. EXTREMITIES: Clubbing and cyanosis negative. LABORATORY DATA: Blood workup as follows; WBC 10.9, hemoglobin 15.8, hematocrit 44.9, platelet count 279. Chemistry shows sodium 140, potassium 4.2, chloride 100, carbon dioxide 29, anion gap of 16, BUN 18, creatinine 0.9. Troponin 0.01, remains negative. IMPRESSION: Atypical chest pain; hypertension, uncontrolled; history of multiple trauma in the war of [place]; history of fractured pelvis in the past; history of right hip replacement; history of fracture of left femur shatter during the [place] war, status post repair; posttraumatic syndrome; obesity. RECOMMENDATION: We will get the echo today. After echo, if the patient's blood pressure remain stable, we will discharge. A scheduled stress test on 11/08/2017. Discussed in length with the patient and okay to discharge on lisinopril 40 mg daily, amlodipine 10 mg, hydrochlorothiazide 12.5 mg daily and metoprolol 25 mg p.o. daily. Thank you, Dr. Franklin for providing us the opportunity in taking care of the patient, Michael Abbasi. Lali Weber MD cc: Kaitlyn Franklin MD [facility]
[2017-10-30 11:55] VITALS: PULSE 72
--- NOTE | 2017-10-30 12:27 | CARD ---
APPROVED REPORT Date of service: 10/30/2017 EXAM: Two-dimensional and M-mode echocardiogram with Doppler and color Doppler. INDICATION LV Function:SystolicDiastolic Chest Pain 2D DIMENSIONS Left Atrium (2D)4.0 (1.6-4.0cm)IVSd1.2 (0.7-1.1cm) LVDd4.8 (3.9-5.9cm)PWd1.5 (0.7-1.1cm) LVDs3.3 (2.5-4.0cm)FS (%) 31.6 % LVEF (%)59.5 (>50%) M-Mode DIMENSIONS Aortic Root3.20 (2.2-3.7cm)Aortic Cusp Exc.2.20 (1.5-2.0cm) Aortic Valve AoV Peak Wfvmxwjf911.0cm/Geno Peak GR.5mmHg Mitral Valve MV E Fegruzhr80.2cm/sMV A Asskdrob20.8cm/sE/A ratio1.2 TDI E/Lateral E'0.0E/Medial E'0.0 Tricuspid Valve TR Peak [id number]/sRAP [id number] Peak Gr.4mmHg [id number] LEFT VENTRICLE The left ventricle is normal size. There is borderline to mild concentric left ventricular hypertrophy. The left ventricular function is normal.EF-55-60% There is normal LV segmental wall motion. The left ventricular diastolic function is normal. No left ventricle thrombus noted on this study. There is no ventricular septal defect visualized. There is no left ventricular aneurysm. There is no mass noted in the left ventricle. RIGHT VENTRICLE The right ventricle is normal size. There is normal right ventricular wall thickness. The right ventricular systolic function is normal. ATRIA Upper limit Normal The right atrium size is normal. The interatrial septum is intact with no evidence for an atrial septal defect. AORTIC VALVE The aortic valve is thickened but opens well. No aortic regurgitation is present. There is no aortic valvular stenosis. There is no aortic valvular vegetation. MITRAL VALVE The mitral valve is thickened but opens well. Mitral regurgitation is trace. There is no mitral valve stenosis. There is no evidence of mitral valve prolapse. TRICUSPID VALVE The tricuspid valve leaflets are thickened , but open well. There is trace tricuspid regurgitation.RVSP_14 mmof hg. There is no tricuspid valve stenosis. There is no tricuspid valve prolapse or vegetation. PULMONIC VALVE The pulmonary valve is normal in structure. There is no pulmonic valvular regurgitation. There is no pulmonic valvular stenosis. GREAT VESSELS The aortic root is normal in size. The ascending aorta is normal in size. The pulmonary artery is normal. The IVC is normal in size and collapses >50% with inspiration. PERICARDIAL EFFUSION There is no pleural effusion. There is no pericardial effusion. <Conclusion> The left ventricle is normal size. There is borderline to mild concentric left ventricular hypertrophy. The left ventricular function is normal.EF-55-60% Mitral regurgitation is trace. There is trace tricuspid regurgitation.RVSP_14 mmof hg. The IVC is normal in size and collapses >50% with inspiration. There is no pericardial effusion. TDS, Poor sonic Window.
== END 2017-10-30 12:44 | disposition home or self-care (01) ==
LOC: ED 17:36 → ERH 22:40 → 2RNO 23:29
PROVIDERS: ADMIT Internal Medicine; ATTEND Internal Medicine
DX: I10 Essential (primary) hypertension (principal); R07.89 Other chest pain; D72.829 Elevated white blood cell count, unspecified; I45.10 Unspecified right bundle-branch block; J30.81 Allergic rhinitis due to animal (cat) (dog) hair and dander; F17.200 Nicotine dependence, unspecified, uncomplicated; E66.9 Obesity, unspecified; F43.10 Post-traumatic stress disorder, unspecified; Z68.41 Body mass index [BMI] 40.0-44.9, adult; Z79.82 Long term (current) use of aspirin; Z82.49 Family history of ischemic heart disease and other diseases of the circulatory system; Z87.01 Personal history of pneumonia (recurrent); Z87.440 Personal history of urinary (tract) infections; Z87.442 Personal history of urinary calculi; Z96.641 Presence of right artificial hip joint; Z87.81 Personal history of (healed) traumatic fracture
CPT/HCPCS: 36415; 71045; 71275; 74175; 80053; 80061; 81001; 82550; 82607; 82746; 83036; 83540; 83550; 83615; 83735; 83880; 84100; 84443; 84484; 85025; 85027; 93005; 93306; 96374; 99285; G0378; G0480; J2270; J7030; Q9967